=== PATIENT | female | born 2005 | race Two or more races ===

== ENCOUNTER 2023-08-27 20:40 | Emergency (ER) | payer OTHER ==
[~2023-08-27] VITALS: Ht 149.9 cm; Wt 57.7 kg
[2023-08-27 20:48] VITALS: BP 133/81; PULSE 113; RESP 20; TEMP 98.7
[2023-08-27] MEDS ORDERED: IRON PO (20:53)
[2023-08-27] MEDS: OXYMETAZOLINE HCL 0.05% 15 ML NASAL SPRAY NASAL ONE (21:33)
== END 2023-08-28 01:18 | disposition left against medical advice (07) ==
LOC: EMS 20:40
DX: R04.0 Epistaxis (principal); Z53.21 Procedure and treatment not carried out due to patient leaving prior to being seen by health care provider
CPT/HCPCS: Z7610